=== PATIENT | male | born 1990 | race African-American/Black ===

== ENCOUNTER 2023-11-22 14:36 | Emergency (ER) | payer BC, MEDICAID ==
[~2023-11-22] VITALS: Ht 170.2 cm; Wt 96.3 kg
[~2023-11-22 14:36] MED LIST: ALBUAER3 IN; BECL80AE9 IN; BUPR300T30 PO; LISI-709 PO; LISI-710 PO; MULT-352 OR; OMEG-20 PO; PRAV20TA3 PO; ZOLP10TA PO
[2023-11-22 15:10] VITALS: BP 174/90; PULSE 102; RESP 17; TEMP 98.2; O2SAT 97
[2023-11-22] MEDS ORDERED: CEPH500C PO (15:36)
[2023-11-22] MEDS ORDERED: LIDO2SOL26 MT (15:36)
== END 2023-11-22 15:43 | disposition home or self-care (01) ==
LOC: ER 14:36
DX: J03.90 Acute tonsillitis, unspecified (principal); E66.01 Morbid (severe) obesity due to excess calories; Z68.33 Body mass index [BMI] 33.0-33.9, adult; Z88.6 Allergy status to analgesic agent